=== PATIENT | female | born 2000 | race Caucasian/White ===

== ENCOUNTER 2025-02-15 09:54 | Emergency (ER) | payer OTHER, SELFPAY ==
--- OUTSIDE RECORDS SUMMARY | 2025-02-15 09:59 | XMS_ITS | Clinical Summary ---
Author Organization [facility] Care Team Providers Care Marsh Buggy Operator Name Role Phone Unavailable Primary Care Provider Unavailabl e Social History Tobacco Use Types Packs/Day Years Used Date Smoking Tobacco: Never Assessed Comments Unknown Sex and Gender Information Value Date Recorded Sex Assigned at Not on file Legal Sex Female 10:03 AM MINK RANCHER Gender Identity Not on file Sexual Orientation Not on file Plan of Treatment Health Maintenance Due Date Last Done Comments Hepatitis C Virus (HCV) Screening 2001 Human Papillomavirus (HPV) Immunization (1 - 3-dose series) 2016 Meningococcal B Immunization (1 of 2 - Standard) 2017 Influenza Immunization (#1) 01/13/202503/15, 03/05/2015, 03/07/2014, Additional history exists SARS-COV-2 Immunization ( season) 2025 Respiratory Syncytial Virus (RSV) Immunization (Adult) (1 - 1-dose 75+ series) 2076 Hepatitis B Immunization Completed 003, 06/20/2002, 2001 Pneumococcal Immunization Combined Completed 04/14/2003, 06/20/2002, 04/25/2002, Additional history exists Hepatitis A Immunization Discontinued 03/16/2007, 02/12 Varicella Immunization Discontinued 03/16/2007, 2002 Measles Mumps Rubella (MMR) Immunization Discontinued 08/31/2007, 04/14/2003 Polio (IPV) Immunization Discontinued 008, 01/03/2003, 04/25/2002, Additional history exists DTaP/Tdap/Td Immunization Discontinued 2013, 08/31/2007, 04/14/2003, Additional history exists TdaP Immunization Completed 08/15/2013 Meningococcal Immunization (ACWY) Completed 11/27/2018, 08/15/2013 Rotavirus Immunization Aged Out No lo nger eligible based on patient's age to complete this topic
--- OUTSIDE RECORDS SUMMARY | 2025-02-15 09:59 | XMS_ITS | Clinical Summary ---
Author Organization [facility] Address [address] [place] [address] Care Team Providers Care Program Admin Name Role Phone Desire Vo MD Primary Care Provider Source Comments [facility],non-owned Affiliates and Associated Physician Practices is amultiple site organization consisting of ambulatory clinics and hospital sitesin [place], [place] and [place]. This disclosure is being madepursuant to the Care Everywhere program and may not contain all information available regarding this patient. Last updated 18.[facility] Allergies No known active allergies Medications * Be aware that medications may not be up to date on this document. Alwaysverify current medications with the patient. No known medications Active Problems Problem Noted Date Diagnosed Date Right foot pain 12/22/2016 Social History Tobacco Use Types Packs/Day Years Used Date Smoking Tobacco: Never Assessed Comments No Sex and Gender Information Value Date Recorded Sex Assigned at Not on file Legal Sex Female 5:41 AM WORKFORCE ADVISOR Gender Identity Not on file Sexual Orientation Not on file Last Filed Vital Signs Vital Sign Reading Time Taken Comments Blood Pressure 108/60 06/20/2013 1:01 PM WORKFORCE ADVISOR Pulse - - Temperature - - Respiratory Rate - - Oxygen Saturation - - Inhaled Oxygen Concentration - - Weight 40.1 kg (88 lb 8 oz) 06/20/2013 1:[address] Height 145.3 cm (4' 9.21) 06/20/2013 1:01 PM CS T Body Mass Index 19.01 06/20/2013 1:01 PM WORKFORCE ADVISOR Plan of Treatment Health Maintenance Due Date Last Done Comments HIV SCREENING 2016 HPV VACCINE (1 - 3-dose series) 2016 CHLAMYDIA/GONORRHEA SCREENING 2017 MENINGOCOCCAL (Group B) VACC INE SHARED DECISION-MAKING (1 of 2 - Standard) 2017 HEPATITIS C SCREENING 12/22/2019 DTAP/TDAP/TD VACCINES (1 - Tdap) 2020 HEPATITIS B VACCINE (1 of 3 - 19+ 3-dose series) 2020 DEPRESSION SCREENING 05/15/2024 COVID-19 VACCINE (1 - 2023-2 5 season) 2025 INFLUENZA VACCINE (#1) 2025 ZOSTER VACCINE (1 of 2) 12/27/2051 HIB VACCINE Aged Out No longer eligi ble based on patient's age to complete this topic MENINGOCOCCAL GROUPS A/C/Y/W VACCINE Aged Out No longer eligible b ased on patient's age to complete this topic PNEUMOCOCCAL VACCINE Aged Out No long er eligible based on patient's age to complete [place] [address] [facility] * Guarantor: AMELIA GRANDE Account Type Relation to Patient Date of Phone Billing Address Personal/[place] [address] Care Teams Program Admin Relationship Specialty Start Date End Date Desire Vo MD [facility] [place], [place] [id number] PCP - General Pediatrics 06/14/13
--- OUTSIDE RECORDS SUMMARY | 2025-02-15 09:59 | XMS_ITS | Encounter Summary ---
Author Organization [facility] Address [address] [place] [address] Care Team Providers Care Supervisor Computer Operations Name Role Phone Elda Mark [facility] Primary Care Provider + Jassi Luna MD Unavailable [phone] Haylee Riddle NP Primary Care Provider [phone] Encounter Details Date Type Department Care Team (Late st Contact Info) Description 05/21/2021 Kaizen Platform Message Enc [facility] Family & Internal Medicine [address] [address] Elda Mark [facility] [address] [place] [address] Insurance Card Social History Tobacco Use Types Packs/Day Years Used Date Smoking Tobacco: Never Smokeless Tobacco: Never Alcohol Use Standard Drinks/Week Comments No 0 (1 standard drink = 0.6 oz pur e alcohol) AUDIT-C Answer Date Recorded Frequency of Alcohol Consumption Never 10/20/2018 Average Number of Drinks Not on file 019 Frequency of Binge Drinking Not on file 12/2018 PHQ-2 Answer Date Recorded PHQ-2 Score - If the patient scores above 3, please move on to questions 3-9 0 05/17/2021 Comments No Sex and Gender Information Value Date Recorded Sex Assigned at Female 06/26/2024 2:25 PM HVAC R INSTRUCTOR Legal Sex Female 7:56 PM CDT Gender Identity Not on file Sexual Orientation Not on file COVID-19 Exposure Response Date Recorded In the last month, have you been in contact with someone who was confirmed or suspected to have Coronavirus / COVID-19? No / Unsure 05/17/2021 7:52 AM HVAC R INSTRUCTOR documented as of this encounter Functional Status * RETIRED Are you deaf or do you have serious difficulty hearing Answer Date of Assessment Author Status No 06/03/2020 8:08 PM HVAC R INSTRUCTOR Activ e * RETIRED Are you blind or do you have serious difficulty seeing, even when wearing glasses? Answer Date of Assessment Author Status No 06/03/2020 8:08 PM HVAC R INSTRUCTOR Activ e * Do you have serious difficulty walking or climbing stairs? Answer Date of Assessment Author Status No 06/03/2020 8:08 PM Mariely Martin RN Active * Do you have difficulty dressing or bathing? Answer Date of Assessment Author Status No 06/03/2020 8:08 PM Mariely Martin RN Active * Because of a physical, mental, or emotional condition, do you have difficulty doing errands alone such as visiting a doctor's office or shopping? Answer Date of Assessment Author Status No 06/03/2020 8:08 PM Marieyl Martin RN Active documented as of this encounter Mental Status * Because of a physical, mental, or emotional condition, do you have serious difficulty concentrating, remembering, or making decisions? Answer Entry Date Author Status No 06/03/2020 8:08 PM Mariely Martin RN Active documented in this encounter Plan of Treatment Not on file documented as of this encounter Goals Goal Patient Goal Type Associated Problems Recent Progress Patient-Stated? Author Health - patient able to perform ADLs independently General No Farzaneh Finley MSW Family - family caregiver with be involved in care transitions and discharge planning General No Farzaneh Finley MSW documented as of this encounter Visit Diagnoses Not on filedocumented in this encounter Additional Health Concerns Assessment Noted Time PHQ-9 Depression Total Score: 0 05/17/19 22 4:12 PM HVAC R INSTRUCTOR documented as of this encounter Care Teams Supervisor Computer Operations Relationship Specialty Start Date End Date Elda Mark FNP-BC PCP - General Nurse Practitioner Family 12/29/2006/16 [place] [address] [address] [facility] [address] [place] [address] PCP - General Nurse Practitioner Family 09/19/23 [place] [id number] [address] [facility] [address] [place] [address] Consulting Physician CARDIOVASCULAR DISEASE 01/01/21 documented as of this encounter
--- OUTSIDE RECORDS SUMMARY | 2025-02-15 09:59 | XMS_ITS | Encounter Summary ---
Author Organization [facility] Address Formerly [facility] [place] [address] Care Team Providers Care Real Estate Representative Name Role Phone Desire De La O MD Primary Care Provider Elda Mark [facility] Primary Care Provider + Jassi Luna MD Unavailable [phone] Haylee Riddle NP Primary Care Provider [phone] Encounter Details Date Type Department Care Team (Latest Contact Info) Description 03/20/2018 Abstract [facility] , Michel Navarro MD Social History Tobacco Use Types Packs/Day Years Used Date Smoking Tobacco: Never Assessed Comments Unknown Sex and Gender Information Value Date Recorded Sex Assigned at Female 06/26/2024 2:25 PM SIGNALMAN Legal Sex Female 7:56 PM CDT Gender Identity Not on file Sexual Orientation Not on file documented as of this encounter Plan of Treatment Not on file documented as of this encounter Visit Diagnoses Not on filedocumented in this encounter Additional Health Concerns Infection Onset Date Last Indicated Resolved Time COVID-19 Rule Out 06/03/2020 06/03/2020 06/03/2020 12:11 PM SIGNALMAN documented as of this encounter Care Teams Real Estate Representative Relationship Specialty Start Date End Date Desire De La O MD [address] [place] [address] PCP - General PEDIATRICS 10/20/18 12/28/20 Elda Mark FNP- [address] [place] [address] PCP - General Nurse Practitioner Family 12/29/20 07/06/23 [place] [address] [address] [facility] [address] [place] [address] PCP - General Nurse Practitioner Family 09/19/23 [place] [id number] [address] [facility] [address] [place] [address] Consulting Physician CARDIOVASCULAR DISEASE 01/01/21 documented as of this encounter
--- OUTSIDE RECORDS SUMMARY | 2025-02-15 09:59 | XMS_ITS | Clinical Summary ---
Author Organization [facility] Address [address] [place] [id number] Care Team Providers Care Mortgage Loan Specialist Name Role Phone Desire Vo MD Primary Care Provid er Allergies No known active allergies Medications triamcinolone (KENALOG) 0.1 % cream by intratympanic route 3 (three) times a day 9 Active ESTARYLLA 0.25-35 mg-mcg per tablet TK 1 T PO QD 12 9 Active Viorele, 28, 0.15-0.02 mgx21 /0.01 mg x 5 per tablet TK 1 T PO QD 0 Active Active Problems Problem Noted Date Diagnosed Date Stress fracture of femoral neck 09/05/2018 Pain in left hip 09/05/2018 Right foot pain 12/22/2016 Immunizations Immunization Administration Dates Next Due DTaP / HiB 04/14/2003 DTaP 5 Pertussis 08/31/2007, 3,04/25/2002,02/28 Hep A, Pediatric 03/16/2007,03/01/2006 Hep B, Adolescent or Pediatric 01/03/2003,2002,2001 Hib (PRP-T) 06/20/2002,04/25/2002,02/28/2002 IPV 08/31/2007, 3,04/25/2002,02/28 Influenza LAIV (Nasal) 03/07/2014,2011,02/24/2011,03/25,02/09/2010,02/04/2009,02/20/2008 ,03/16/2007 Influenza, Live, Intranasal, Quadrivalent 03/05/2015 Influenza, Trivalent, IM (MDV) 6,03/23/2005,02/13/2004,05/21,04/14/2003 Influenza, Trivalent, Preser vative Free, Intramuscular 03/14/2013 MMR 08/31/2007,04/14/2003 Meningococcal MCV4P (Menactra) 11/27/2018,2013 Pneumococcal Conjugate PCV 13 04/14/2003 ,06/20/2002,04/25/2002,02/28 Tdap 08/15/2013 Varicella 03/16/2007,01/03/2003 Family History Medical History Relation Name Comments No Known Problems Father No Known Problems Mother Relation Name Status Comments Father Mother Social History Tobacco Use Types Packs/Day Years Used Date Smoking Tobacco: Never Smokeless Tobacco: Never Personal Safety Answer Date Recorded Getting School Help Needed Not on file 04/28 Comments Unknown Sex and Gender Information Value Date Recorded Sex Assigned at Not on file Legal Sex Female 9:46 AM CDT Gender Identity Not on file Sexual Orientation Not on file Obstetrics History Plan of Treatment Not on file Insurance [place] [address] [facility] Care Teams Mortgage Loan Specialist Relationship Specialty Start Date End Date Desire Vo MD [facility] [place] [place] [address] PCP - General Pediatrics 08/15/18
--- OUTSIDE RECORDS SUMMARY | 2025-02-15 09:59 | XMS_ITS | Clinical Summary ---
Author Organization [facility] Address Pending sale to [facility] [place] [address] Care Team Providers Care Feed House Supervisor Name Role Phone Jassi Luna MD Unavailable [phone] Haylee Riddle NP Primary Care Provider [phone] Allergies No known active allergies Medications No known medications Active Problems Problem Noted Date Diagnosed Date Tachycardia 06/20/2024 Palpitation 09/20/2023 MANDA (generalized anxiety disorder) 05/21/2022 Resolved Problems Problem Noted Date Diagnosed Date Resolved Date Chest pain 06/03/2020 05/21/2022 Stress fracture of neck of femur 03/06/2018 01/01/2021 Immunizations Immunization Administration Dates Next Due Dtap (Generic) 08/31/2007, 3,04/25/2002,2001 Dtap/Hib 04/14/2003 Fluarix (IIV4) 03/24/2020 Flumist (Intranasal) 03/05/2015 Hepatitis A Vaccine - 2 Dose 03/16/2007,03/01/20 06 Hepatitis B Pediatric 01/03/2003,06/20/2002,12/13 Hib Vaccine, Prp-T 06/20/2002,04/25/2002, 002 Influenza (FluMist) 03/05/2015, 4,02/29/2012,2010,03/25/2010,02/09/2010,02/04/2009,1 ,03/16/2007 Influenza (Generic) 03/14/2013, 6,03/23/2005,2003,05/21/2003,04/14/2003 Influenza Adult (Generic) 03/09/2023,04/14/2022, 04/30/2021 MMR 08/31/2007,04/14/2003 Menactra 11/27/2018,08/15/2013 PFIZER COVID-19 (ORIGINAL FORMULATION, PURPLE CAP) mRNA, LNP-S, PF, 30 MCG/0.3 ML DOSE 12/02/2020,11/11/2020 Pneumococcal (Prevnar 13) 04/14/2003,10/2002,04/25/2002,2001 Polio Ipv (Generic) 08/31/2007, 3,04/25/2002,2001 Tdap (Generic) 03/09/2023,08/15/2013 Varicella Vaccine 03/16/2007,01/03/2003 Family History Medical History Relation Comments None Father None Mother Stroke Paternal Grandfather Relation Status Comments Father Alive Mother Alive Paternal Grandfather Social History Tobacco Use Types Packs/Day Years Used Date Smoking Tobacco: Never Smokeless Tobacco: Never Tobacco Cessation:Counseling Given: Not Answered Alcohol Use Standard Drinks/Week Comments No 0 (1 standard drink = 0.6 oz pur e alcohol) AUDIT-C Answer Date Recorded Frequency of Alcohol Consumption Never 10/20/2018 Average Number of Drinks Not on file 019 Frequency of Binge Drinking Not on file 12/2018 PHQ-2 Answer Date Recorded Patient Health Questionnaire-2 Score 0 04/10/2024 Comments No Sex and Gender Information Value Date Recorded Sex Assigned at Female 06/26/2024 2:25 PM ASSOCIATE CREATIVE DIRECTOR Legal Sex Female 7:56 PM CDT Gender Identity Not on file Sexual Orientation Not on file Last Filed Vital Signs Vital Sign Reading Time Taken Comments Blood Pressure 99/70 09/17/2024 9:19 AM CDT Pulse 94 09/17/2024 9:19 AM CDT Temperature 37.1 C (98.8 F) 09/17/2024 9:19 AM CDT Respiratory Rate 18 09/17/2024 9:19 AM CDT Oxygen Saturation 98% 09/17/2024 9:19 AM CDT Inhaled Oxygen Concentration - - Weight 60.3 kg (133 lb) 09/17/2024 9:19 AM CDT Height 170.2 cm (5' 7) 09/17/2024 9:19 AM CDT Body Mass Index 20.83 09/17/2024 9:19 AM CDT Plan of Treatment Health Maintenance Due Date Last Done Comments Cervical Cancer Screening Pap Smear (Age 21 to 29) Every 3 Years 2001 Cervical Cancer Screening 2001 HPV Vaccines (1 - 3-dose series) 2016 Meningococcal B Vaccine (1 of 2 - Standard) 2017 Annual Physical 05/17/2023 05/17/2022, 01/01/2021 PHQ-2 (Physician Esmond) 05/15/2024 04/10/2024 COVID-19 Vaccine ( season) 2025 04/14/2022, 05/21/2021, 12/02/2020, Additional history exists Influenza Adult (#1) 2025 03/09/2023, 04/14/2022, 04/30/2021, Additional history exists DTaP, Tdap and Td Vaccines (8 - Td or Tdap) 03/09/2033 03/09/2023, 08/15/2013, 08/31/2007, Additional history exists Hepatitis C 10/19/2053 Postponed from 12/27/2019 (Patient Refused) Hepatitis B Vaccines Completed 01/03/2003, 06/20/2002, 2001 Pneumococcal Vaccine: Pediatrics (0 to 5 Years) and At-Risk Patients (6 to 49 Years) Completed 04/14/2003, 06/20/2002, 04/25/2002, Additional history exists Meningococcal Vaccine Completed 11/27/2018, 014 RSV Immunizations Under 20 Months Aged Out No longer eligible based on patient's age to complete this topic Goals Goal Patient Goal Type Associated Problems Recent Progress Patient-Stated? Author Health - patient able to perform ADLs independently General No Farzaneh Finley, FILLING STATION ATTENDANT Family - family caregiver with be involved in care transitions and discharge planning General No Farzaneh Finley MSW Insurance [employer] Advance Directives * Full Code (Latest Code Status on File) Date Activated Date Inactivated Comments 06/03/2020 3:27 PM 06/04/2020 4:50 PM Care Teams Feed House Supervisor Relationship Specialty [place] [address] [address] [place] [address] PCP - General Nurse Practitioner Family 09/19/23 [place] [address] [address] [facility] [address] [place] [address] Consulting Physician CARDIOVASCULAR DISEASE 01/01/21
--- OUTSIDE RECORDS SUMMARY | 2025-02-15 09:59 | XMS_ITS | Encounter Summary ---
Author Organization [facility] Address [address] [place] [address] Care Team Providers Care Lidar Analyst Name Role Phone Elda Mark [facility] Primary Care Provider + Jassi Luna MD Unavailable [phone] Haylee Riddle NP Primary Care Provider [phone] Encounter Details Date Type Department Care Team (Late st Contact Info) Description 06/17/2022 [place] Message Enc [facility] Family & Internal Medicine [address] [address] Elda Mark [facility] [address] [place] [address] Heart Palpatations Social History Tobacco Use Types Packs/Day Years [...] Date Recorded Patient Health Questionnaire-2 Score 0 05/17/2022 Comments No Sex and Gender Information Value Date Recorded Sex Assigned at Female 06/26/2024 2:25 PM DIRECTOR CALL CENTER SALES Legal Sex Female 7:56 PM CDT Gender Identity Not on file Sexual Orientation Not on file documented as of this encounter Functional Status * RETIRED Are you deaf or do you have serious difficulty hearing Answer Date of Assessment Author Status No 06/03/2020 8:08 PM DIRECTOR CALL CENTER SALES Activ e * RETIRED Are you blind or do you have serious difficulty seeing, even when wearing glasses? Answer Date of Assessment Author Status No 06/03/2020 8:08 PM DIRECTOR CALL CENTER SALES Activ e * Do you have serious [...] 8:08 PM Mariely Martin RN Active documented as of this encounter Mental Status * Because of a physical, mental, or emotional condition, do you have serious difficulty concentrating, remembering, or making decisions? Answer Entry Date Author Status No 06/03/2020 8:08 PM Mariely Martin RN Active documented in this encounter Progress Notes * Fariba Krause MA - 06/20/2022 2:58 PM CST Scheduled with Haylee CTOR CALL CENTER SALES * SHELBY Hayward - 06/19/2022 9:27 PM CST I do recommend evaluation. Will need labs to reassess thyroid as she has history of subclinical hypothyroidism as well as other studies. If symptoms worsen will need ER evaluation. CTOR CALL CENTER SALES * Meron Mendoza MA - 06/17/2022 2:56 PM CST Please advise. Can get pt scheduled for an appt if needed CTOR CALL CENTER SALES documented in this encounter Plan of Treatment Not on file documented as of this encounter Goals Goal Patient Goal Type Associated Problems Recent Progress Patient-Stated? Author Health - patient able to perform ADLs independently General No Farzaneh Finley, REGIONAL SALES ASSOCIATE Family - family caregiver with be involved in care transitions and discharge planning General No Farzaneh Finley, REGIONAL SALES ASSOCIATE documented as of this encounter Visit Diagnoses Not on filedocumented in this encounter Additional Health Concerns Assessment Noted Time PHQ-9 Depression Total Score: 0 05/17/19 23 10:02 AM DIRECTOR CALL CENTER SALES documented as of this encounter Care Teams Lidar Analyst Relationship Specialty Start Date End Date [facility] PCP - General Nurse Practitioner Family 12/29/2006/16 [place] [address] [address] [place] [address] PCP - General Nurse Practitioner Family 09/19/23 [place] [id number] [address] [facility] [address] [place] [address] Consulting Physician CARDIOVASCULAR DISEASE 01/01/21 documented as of this encounter
--- NOTE | 2025-02-15 10:00 | ED_ITS ---
HPI - URI/Sore Throat General Chief Complaint: Upper Respiratory Infection Stated Complaint: sinus inf Time Seen by Provider: 02/15/25 10:00 Source: patient Mode of arrival: ambulatory Limitations: no limitations History of Present Illness HPI Narrative: Patient is a 24-year-old female who presents with 1 month of sinus congestion, sinus pressure. Patient has tried [id number] medication with no relief. 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 Denies any fever, chills, nausea, vomiting, diarrhea. Related Data Allergies Allergy/AdvReac Type Severity Reaction Status Date / Time No Known Allergies Allergy Verified 02/15/25 10:04 Review of Systems Review of Systems: All systems reviewed & are unremarkable except as noted in HPI and below Constitutional: Constitutional: Denies chills, Denies fatigue, Denies fever(s ), Denies headache(s), Denies malaise and Denies weakness Eyes: Eyes: Denies blurry vision, Denies itchy eyes and Denies loss of vision ENT: Denies otalgia, Denies headache(s), Reports nasal congestion, Denies sinus pain, Reports sinus pressure and Denies sore throat Cardiovascular: Cardiovascular: Denies chest pain, Denies irregular heart rhythm and Denies dyspnea Respiratory: Respiratory: Denies cough and Denies dyspnea Gastrointestinal: Gastrointestinal: Denies abdominal pain, Denies diarrhea, Denies nausea and Denies vomiting Musculoskeletal: Musculoskeletal: Denies back pain, Denies myalgias and Denies arthralgias Integumentary/Breasts: Skin/Breast: Denies pruritus and Denies rash Neurologic: Denies headache(s), Denies loss of vision and Denies weakness Psychiatric: Psychiatric: Reports no additional psychiatric complaints Endocrine: Endocrine: Denies fatigue Allergic/Immunologic: Allergic/Immunologic: Denies itchy eyes PMFSH Comments At time of signature, agree with nursing past medical, surgical, social and family history. There is no relevant family history pertinent to the presenting complaint. Exam Const: General: cooperative, healthy appearing, comfortable, no acute distress and well nourished Nutritional Appearance: well nourished Orientation/consciousness: patient oriented x3 Limitations: no limitations HENMT: Head: normal to inspection, normocephalic and atraumatic Ears: hearing grossly normal bilaterally, external ears normal, TM's normal bilaterally, EAC's normal and no periauricular adenopathy Face/Nose/Sinus: Normal external nose present, Abnormal mucous membranes and turbinates present erythematous bilateral and diffuse, normal facial exam, face symmetric and Facial tenderness on exam of face and sinuses Face and sinus: normal facial exam and face symmetric Mouth: Yes Normal oral and palatal mucosa present, Yes lip normal, Yes tongue normal, Yes Normal salivary glands and ducts present, Yes oropharynx normal and Yes moist mucous membranes Teeth and gingiva: den tition normal Throat: posterior oropharynx normal, tonsils normal and uvula midline Eyes: General: appearance normal, both eyes and all related structures Alignment and Position: alignment normal and position normal Periorbital: periorbital findings normal Eyelids: eyelids normal Pupils: Equal, round and reactive pupils present Neck: Neck: normal visual inspection, full ROM, no lymphadenopathy and supple Chest: Chest palpation & inspection: normal inspection of the chest and normal palpation of entire chest wall Resp: Effort & Inspection: normal respiratory effort and able to speak in complete sentences Auscultation: clear to auscultation bilaterally, no crackles, no rales, no rhonchi and no wheezes Cardio: Rate: regular rate Rhythm: regular rhythm Heart sounds: S1 normal heart sound present and S2 normal heart sound present GI: Inspection: normal to inspection Skin: General skin exam: normal color and no rashes or lesions noted Neuro: General: patient oriented x3 and moves all extremities Cranial nerves: Yes Equal, round and reactive pupils present Speech: normal speech Gait exam (Neuro): Normal gait present Extrem: General: normal to inspection, full ROM and no edema Psych: Appearance: grossly normal and well kempt Mental Status: mental status grossly normal Speech and movement: Normal speech and movement present Affect: normal affect Attitude: cooperative Thought process: Normal thought process present Course Course Emergency Course: Discharge instructions reviewed with patient, as well as provided in writing per nursing staff. The instructions also include specific and strict return/GO TO THE ER as well as f/u information. All questions have been answered, and the patient deny any further questions with discharge and discharge plan. Portions of this record may have been created with voice recognition software Level of Care: Express Care Visit Vital Signs Vital signs: Reviewed MDM - URI/Sore Throat MDM Narrative Medical decision making narrative: Pt well hydrated appearing, in no respiratory distress, hemodynamically stable. Recommend supportive care. The patient is stable at time of discharge the clinical impression was discussed and the patient was given the opportunity to ask questions, which were addressed as completely as possible given the information available at present. Anticipatory guidance and return to care precautions were discussed and the importance of primary care follow-up was stressed and encouraged. The patient voiced understanding of the plan, indications to return, and the need for follow-up. Exam findings show no acute concerns or changes Patient is appropriate for outpatient treatment and follow-up. Differential diagnosis considered: Chow virus, strep pharyngitis, allergic rhinitis, upper respiratory tract infection, sinusitis, rhinosinusitis, nasopharyngitis. viral pharyngitis, otitis media, otitis externa, otitis effusion, foreign body, cerumen impaction, viral syndrome, and influenza.? Discharge Plan Discharge Clinical Impression: Sinusitis Qualifiers: Sinusitis location: pansinusitis Chronicity: acute Recurrence: non-recurrent Q ualified Code(s): J01.40 - Acute pansinusitis, unspecified Patient Disposition: Home Condition: Stable Instructions: Sinusitis (ED) Additional Instructions: Take antibiotic as prescribed. Take steroids in the morning with food. Other symptomatic treatments include: -Alternate Tylenol and Motrin per package directions for fever or pain: Tylenol 650-1000mg by mouth every 4-6 hours. Do not exceed 4000mg in 24 hours. Advil (Ibuprofen) 600 mg by mouth every 6 hours. Do not exceed 2400mg in 24 hours. 8 AM: Tylenol 11 AM: Ibuprofen 2 PM: Tylenol 5 PM: Ibuprofen 8 PM: Tylenol 11 PM: Ibuprofen 2 AM: Tylenol 5 AM: Ibuprofen -Antihistamine medication such as Benadryl at night and Zyrtec/Claritin/Raysa during the day can help improve symptoms. -Use Flonase twice a day for 5 days then daily to help reduce the inflammation and dry up your sinuses. -You can also use Sudafed or Mucinex. Be sure to drink plenty of water with these medications at least 8 ounces with every dose and it is important to drink 8 to 10 glasses of water per day. Water is a natural decongestant -Eat and drink things that are easy to swallow, like tea or soup, or popsicles. -Oral rinses such as: Salt water gargles and/or may use topical anesthetic (eg. Chloraseptic spray) or lozenges to relieve dryness or throat pain). -Frequent hand washing or hand co founder and ceo is one of the best ways to prevent spread of infection. -Using a vaporizer or humidifier at night will also help thin secretions and help with coughing up phlegm. Call your Primary Care Doctor and make a follow-up appointment in 3 days. If your cough worsens, you develop a fever greater than 103, you develop shaking chills, a fast heartbeat, trouble breathing and/or feel you are are breathing much faster than usual, call your Primary Care Doctor or go to the ER. Patient Language: Croatian Prescriptions: New prednisone 20 mg tablet 40 mg PO DAILY 5 Days Qty: 10 0RF fluticasone propionate [Flonase Allergy Relief] 50 mcg/actuation spray,suspension 1 spray intranasal DAILY Qty: 16 0RF Rx Instructions: administer into each nostril amoxicillin-pot clavulanate 875-125 mg tablet 1 tablet PO Q12H 10 Days Qty: 20 0RF Follow-up/Referrals: Janessa,Haylee Kulkarni, FANCY WIRE DRAWER [Primary Care Provider, [facility]] - 3 Days Time of Disposition: 10:59
[2025-02-15 10:22] VITALS: BP 117/74; PULSE 96; RESP 18; TEMP 36.7; O2SAT 100
== END 2025-02-15 11:01 | disposition home or self-care (01) ==
PROVIDERS: Emergency Provider Nurse Practitioner Family; PCP Nurse Practitioner Family
DX: J01.40 Acute pansinusitis, unspecified (principal)
CPT/HCPCS: 99203; G0463